=== PATIENT | male | born 1995 | race Caucasian/White ===

== ENCOUNTER 2020-10-13 22:30 | Emergency (ER) | payer OTHER ==
[~2020-10-13] VITALS: Ht 185.4 cm; Wt 79.0 kg
[2020-10-14] MEDS ORDERED: TETANUS, DIPHTHERIA, PERTUSSIS VAC/PF 0.5ML (>7YR OLD) IM ONE (00:30)
[2020-10-14] MEDS ORDERED: ONDANSETRON HCL 4MG/2ML INJ IV ONE (00:30)
[2020-10-14] MEDS ORDERED: MORPHINE SULFATE 4 MG/ML CPJ (NOT FOR IM USE) IV ONE (00:30)
[2020-10-14] MEDS ORDERED: ACET-2708 MT (02:17)
[2020-10-14] MEDS ORDERED: IBUP-2029 MT (02:17)
[2020-10-14] MEDS ORDERED: BACITRACIN ZINC OINT UDPKT TOP ONE (02:30)
[2020-10-14 03:15] VITALS: BP 112/61
== END 2020-10-14 03:18 | disposition home or self-care (01) ==
LOC: ER 22:30
DX: S80.212A Abrasion, left knee, initial encounter (principal); V43.52XA Car driver injured in collision with other type car in traffic accident, initial encounter; Y93.89 Activity, other specified; Y92.410 Unspecified street and highway as the place of occurrence of the external cause; M54.2 Cervicalgia; J45.909 Unspecified asthma, uncomplicated
CPT/HCPCS: 70450; 71045; 72125; 73562; 90471; 90715; 96374; 96375; 99285; J2270; J2405; Z7610